=== PATIENT | female | born 1955 | race Caucasian/White ===

== ENCOUNTER 2020-08-31 18:37 | Emergency (ER) | payer BC ==
--- OUTSIDE RECORDS SUMMARY | 2020-08-31 18:39 | XMS REPORT | Continuity of Care Document ---
:1955 Author Organization [facility] t Address [address] [place] [address] Care Team Providers Name Role Phone Elisabeth GENTILE Primary Care Physician Shirley GENTILE, P. Attending Clinician Elisabeth GENTILE Attending Clinician Payers Payer Name Policy Type Policy Effective Date Expiration Date [facility] Express Number [id number] CHOICE [id number] 2016 [place] PPO/FEDERAL 00:00:00 [facility] EMPL [id number] 2016-Presen tPPO Problems Condition Condition Condition Status Onset Resolution Last Treating Co mments Source Name Details Category Date Date Treatment Clinician Date Routine Routine Disease Active [place] general general 6-24 [facility] medical medical 00:00: st examinatio examinatio 00 n at a n at a health health care care facility facility Ganglion, Ganglion, Disease Active Alvina ston joint joint -12 [facility] 00:00: st 00 Postmenopa Postmenopa Disease Active 2008-02 [place] use use 1-24 [facility] 00:00: st 00 Vitamin D Vitamin D Disease Active 2008-02 Al[facility]ina ston deficiency deficiency 0-22 [facility] 00:00: st 00 Screening Screening Disease Active Al[facility]ina ston for for 2-27 [facility] malignant malignant 00:00: st neoplasm neoplasm 00 of the of the cervix cervix Unspecifie Unspecifie Disease Active [place] d disorder d disorder 2-20 [facility] of of 00:00: st menstruati menstruati 00 on and on and other other abnormal abnormal bleeding bleeding from from female female genital genital tract tract Allergic Allergic Disease Active [place] rhinitis rhinitis 06 Method i 00:00: st 00 Family Family Disease Active [place] history of history of 206 [facility] ischemic ischemic 00:00: st heart heart 00 disease disease Lesion of Lesion of Disease Active Overview: [place] breast breast 1-18 Formattin [facility] 00:00: g of this st note might be different from the original. right breast mucocele- like lesion status post core biopsy Allergies, Adverse Reactions, Alerts Allergy Allergy Status Severity Reaction(s) Onset Inactive Treating Comm ents Source Name Type Date Date Clinician Blue Dye Propensi Active Rash [place] ty to 8 [facility] adverse 00:00: st reaction 00 s to drug Acetic Propensi Active [place] Acid ty to 3 [facility] adverse 00:00: st reaction 00 s to drug Family History Family Member Diagnosis Comments Start Date Stop Date Source Natural mother Atrial fibrillation [place] [facility] Natural mother Heart disease [place] [facility] Paternal Dementia [place] grandfather Judaism Paternal Stroke [place] grandmother Judaism Natural father Heart disease [place] [facility] Maternal Brain cancer [place] grandfather Judaism Maternal Colon cancer [place] grandmother Judaism Social History Social Habit Start Date Stop Date Quantity Comments Source Tobacco use and 2020-01-08 2020-01-08 Never used Aidan Haley ethodist exposure 00:00:00 00:00:00 Alcohol intake 2020-01-08 2020-01-08 Current drinker [place] on [facility] 00:00:00 00:00:00 of alcohol (finding) Sex [birth year] F Bermudez Sudha ethodist 00:00:00 00:00:00 Smoking Status Start Date Stop Date Source Never smoker Bermudez Yannais t Medications Ordered Filled Start Stop Current Ordering Indication Dosage Frequency Signature Comments Components Source Medication Medication Date Date Medication? Clinician (SIG) Name Name cholecalcif 2019-02 Yes 1000U Take 1,000 [place] lopez, 1-24 Units by [facility] vitamin D3, 13:23: mouth. st (VITAMIN 21 D3) 1,000 unit tablet folic 2019-02 Yes Take by Berm[place]z acid/multiv 1-24 mouth. Method i it-min/lute 13:23: st in (CENTRUM 21 SILVER ORAL) aspirin 2019-02 Coronary 81mg QD Take 1 Alvina ston (ECOTRIN) 03-09 artery tablet (81 M ethodi 81 MG 00:00: 23:59 calcificati mg total) st enteric 00 :00 on seen on by mouth coated CT scan daily. tablet rosuvastati 2019-02 Mixed 5mg QD Take 1 [place] (Crestor) 03-09 hyperlipide tablet (5 [facility] 5 mg tablet 00:00: 23:59 royer mg total) st 00 :00 by mouth daily for 90 days. azelastine 2018-02 Yes 1{spray 1 spray [place] (ASTELIN) 03-12 } into each Metho di 137 mcg 00:00: nostril as st (0.1 %) 00 needed. nasal spray rosuvastati No 20mg QD Take 1 Alvina ston n (CRESTOR) 10-18 tablet (20 M ethodi 20 MG 00:00: 23:59 mg total) st tablet 00 :00 by mouth daily. Immunizations Ordered Immunization Filled Immunization Date Status Commen ts Source Name Name PFIZER COVID-19 MRNA 2020-04-28 Completed [place] VACCINATION 00:00:00 [facility] PFIZER COVID-19 MRNA 2020-04-07 Completed [place] VACCINATION 00:00:00 [facility] Influenza, 2019 Completed [place] Unspecified 00:00:00 [facility] Influenza, 2018-11-14 Completed [place] Unspecified 00:00:00 [facility] Tdap 2018-08-07 Completed [place] 00:00:00 [facility] Zoster 2015-12-09 Completed [place] 00:00:00 [facility] Influenza [facility] T[facility] 2006-11-04 Completed [place] 00:00:00 [facility] Vital Signs Vital Name Observation Time Observation Value Comments Source Body height 2020-01-08 13:52:00 165.1 cm Aidan Ko Body weight 2020-01-08 13:52:00 54.432 kg Aidan Ko BMI 2020-01-08 13:52:00 19.97 kg/m2 Aidan Ko Procedures Procedure Date / Time Performed Performing Clinician Sour e URINE CULTURE 2020-01-09 14:17:00 Sherrill Barber [facility] URINALYSIS, AUTOMATED 2020-01-09 14:17:00 Sherrill Barber [facility] WITH MICROSCOPY VITAMIN D 25 HYDROXY 2020-01-09 14:17:00 Sherrill Barber on [facility] LEVEL Plan of Care Planned Activity Planned Date Details Comments Source Future Scheduled 2021-12-22 COLONOSCOPY SCREENING [place] [facility] Test 00:00:00 [code = COLONOSCOPY SCREENING] Future Scheduled 2020-09-14 INFLUENZA VACCINE [place] [facility] Test 00:00:00 [code = INFLUENZA VACCINE] Future Scheduled 2019-11-18 BREAST CANCER [place] [facility] Test 00:00:00 SCREENING [code = BREAST CANCER SCREENING] Future Scheduled 2016-02-08 SHINGLES VACCINES [place] [facility] Test 00:00:00 (#2) [code = SHINGLES VACCINES (#2)] Future Scheduled 1976-11-25 Screening for [place] [facility] Test 00:00:00 malignant neoplasm of cervix (procedure) [code = 701739037] Future Scheduled 1973-11-25 Hepatitis C screening [place] [facility] Test 00:00:00 (procedure) [code = 568610357] Encounters Start End Encounter Admission Attending Care Care Encounter Source Date/Time Date/Time Type Type Clinicians Facility Department ID 2020-04-28 2020-04-28 Outpatient SHIRLEY, [facility] [id number] [place] 00:00:00 00:00:00 JOHN [address] 2020-04-07 2020-04-07 Outpatient [facility] [id number] [place] 00:00:00 00:00:[address] 2020-01-08 2020-01-08 Outpatient ELISABETH [facility] [id number] [place] 00:00:00 00:00:[address] Results Test Description Test Time Test Comments Results Result Comments Source Urine culture 2020-01-10 22:01:00 Test Item Value Reference Range Interpretation Comme nts Urine culture (test SEE NOTE CULTUR E, URINE, ROUTINE code = 630-4) Micro Number: [id number] Test Status: Final Specimen Source : URINE Specimen Qualit y: Adequate Result: Growth of mixed carole was isolated, suggesting probable contam ination. No further testing will be pe rformed. If clinically hilda cated, rec ollection using a method to min imize conta mination, with prompt transfer to Urine C ulture Transport Tube, is recommended. RAC (test code = RAC) Performing Organization Information: Site ID: SHIRA [facility] Address: [address] [place] [id number] Director: Jack Bermudez MethodistUrinalysis, automated with [id number] 22:01:00 Test Item Value Reference Range Interpretation Comments Color, UA (test YELLOW YELLOW code = 5778-6) Appearance (test CLEAR CLEAR code = 5767-9) Specific gravity, 1.012 1.001-1.035 urine (test code = 5811-5) pH, urine (test 7.5 5.0-8.0 code = 5803-2) Glucose, urine NEGATIVE NEGATIVE (test code = 72467-6) Bilirubin, UA NEGATIVE NEGATIVE (test code = 5770-3) Ketones, UA (test NEGATIVE NEGATIVE code = 2514-8) Occult blood, NEGATIVE NEGATIVE urine (test code = 5794-3) Protein, UA (test NEGATIVE NEGATIVE code = 40616-1) Nitrite, UA (test NEGATIVE NEGATIVE code = 5802-4) Leukocyte NEGATIVE NEGATIVE esterase, UA (test code = 5799-2) WBC, UA (test NONE SEEN See_Comment [Automated code = 5821-4) message] The system which generated this result transmit claire reference range : < OR = 5 /HPF. Th e reference range was not used to interpret this result as normal/abnormal . RBC, UA (test NONE SEEN See_Comment [Automated code = 28741-9) message] The system which generated this result transmit claire reference range : < OR = 2 /HPF. Th e reference range was not used to interpret this result as normal/abnormal . Squamous NONE SEEN See_Comment [Automated epithelial cells, message] T he UA (test code = system which 07271-2) generated this result transmit claire reference range : < OR = 5 /HPF. Th e reference range was not used to interpret this result as normal/abnormal . Bacteria, UA NONE SEEN NONE SEEN /HPF (test code = 5769-5) Hyaline casts, UA NONE SEEN NONE SEEN /LPF (test code = 5796-8) RAC (test code = Performing RAC) Organization Information: Site ID: SHARMAINEA Name: [facility] Address: [address] [place] [id number] Director: Jack KoVitamin D 25 hydroxy [id number] 22:01:00 Test Item Value Reference Range Interpretation Comments Vitamin D, 41 ng/mL 30-100 Vitamin D Statu s 25-hydroxy 25-OH Temitope min (test code = D: Deficiency: 1989-3) < 20 ng/mLInsufficie ncy: 20 - 29 ng/mLOptimal: > or = 30 ng/mL For 25-OH Vitamin D testi ng on patients on D2-supplementat ion and patients fo r whom quantitati on of D2 and D3 fractions is required, the QuestAssureD(TM )25- OH VIT D, (D2,D 3), LC/MS/MS is recommended: or norman code 71354 (patients >2yrs).See Note 1 Note 1 For additional information, pl ease refer to http://educatio n.[employer]. com/ faq/XBT459 (Thi s link is being provided for informational/e duca tional purposes only.) RAC (test code Performing = RAC) Organization Information: Site ID: SHARMAINEA Name: [facility] Address: [address] [place] [phone] Director: Jack Ko
[2020-08-31] MEDS ORDERED: BUPIVACAINE 0.5% PF 10 ML VIAL ONE (20:38)
[2020-08-31] MEDS ORDERED: TETANUS & DIPHTHERIA TOX,ADULT 0.5 ML VIAL ONE (20:53)
--- NOTE | 2020-08-31 21:21 | EDPHYS ---
Physician Documentation [facility] Name: Isis Torres Age: 64 yrs Sex: Female : 1955 Arrival Date: 08/31/2020 Time: 18:38 Bed 24 Private MD: ED Physician Kang Adams HPI: 08/31 21:17 This 64 yrs old Female presents to ER via Ambulatory with complaints of jmm Finger Laceration. 21:17 The patient or guardian reports injury, a laceration. Onset: The symptoms/episode jmm began/occurred acutely, just prior to arrival. Modifying factors: The symptoms are alleviated by nothing, the symptoms are aggravated by nothing. Associated signs and symptoms: Pertinent negatives: cyanosis distally, decreased sensation distally, fever, nausea, numbness distally, tingling distally, vomiting. Patient states accidently cutting herself with a knife. Patient is unsure on tetanus status. . Historical: - Allergies: 19:05 blue dye; ll1 - PMHx: 19:05 None; ll1 - PSHx: 19:05 Appendectomy; ankle SX; ll1 - Immunization history:: Client reports receiving the 2nd dose of the Covid vaccine, Flu vaccine is up to date. - Social history:: Smoking status: Patient denies any tobacco usage or history of. ROS: 21:17 Constitutional: Negative for fever, chills, and weight loss, Cardiovascular: Negative jmm for chest pain, palpitations, and edema, Respiratory: Negative for shortness of breath, cough, wheezing, and pleuritic chest pain. 21:17 Skin: Positive for laceration(s). 21:17 All other systems are negative. Exam: 21:17 Constitutional: This is a well developed, well nourished patient who is awake, alert, jmm and in no acute distress. Head/Face: atraumatic. Eyes: EOMI, no conjunctival erythema appreciated ENT: Moist Mucus Membranes Neck: Trachea midline, Supple Chest/axilla: Normal chest wall appearance and motion. Cardiovascular: Regular rate and rhythm. No edema appreciated Respiratory: Normal respirations, no respiratory distress appreciated Abdomen/GI: Non distended, soft Back: Normal ROM 21:17 Skin: 1 cm laceration noted to the palmar surface of the left distal 2nd finger. . 21:17 Neuro: Orientation: is normal, Mentation: is normal, Memory: is normal. 21:17 Psych: Behavior/mood is pleasant, cooperative. Vital Signs: 19:03 BP 128 / 71; Pulse 68; Resp 16; Temp 97.3; Pulse Ox 100% ; Weight 56.7 kg; Height 5 ft. ll1 5 in. (165.10 cm); Pain 3/10; 21:27 BP 120 / 80; Pulse 65; Resp 16; Pulse Ox 100% ; zb 19:03 Body Mass Index 20.80 (56.70 kg, 165.10 cm) ll1 Laceration: 21:19 Wound Repair of 1cm ( 0.4in ) subcutaneous laceration to left hand. Distal jmm neuro/vascular/tendon intact. Anesthesia: Local anesthetic administered with 2 mls of 0.5% marcaine. Wound prep: Simple cleansing with betadine by me. Skin closed with 3 5-0 Prolene using simple sutures and sterile technique. Patient tolerated well. MDM: 20:21 Patient medically screened. [facility] 21:19 Data reviewed: vital signs, nurses notes. Counseling: I had a detailed discussion with rochelle the patient and/or guardian regarding: the historical points, exam findings, and any diagnostic results supporting the discharge/admit diagnosis, the need for outpatient follow up, to return to the emergency department if symptoms worsen or persist or if there are any questions or concerns that arise at home. ED course: Patient given wound infection return precautions. Patient understood and agrees with the plan of care. . Administered Medications: 20:23 Drug: Marcaine (bupivacaine) (0.5 %) 10 ml {Note: given to ecp .} Volume: 10 ml; Route: zb Infiltration; 20:43 Drug: Tetanus-Diphtheria Toxoid Adult 0.5 ml {Social Media Director: [employer]. Exp: zb 04/18/2022. Lot #: [id number]. } Route: IM; Site: left deltoid; 21:27 Follow up: Response: No adverse reaction zb Disposition: 23:06 Co-signature as Attending Physician, Kang Adams MD. pkl Disposition Summary: 08/31/20 21:21 Discharge Ordered Location: Home [facility] Condition: Stable [facility] Diagnosis - Finger Laceration [facility] Followup: [facility] - With: Private Physician - When: 7 - 10 days - Reason: Recheck today's complaints, Continuance of care, Re-evaluation by your physician Discharge Instructions: - Discharge Summary Sheet jmm - Laceration Care, Adult rochelle Forms: - Medication Reconciliation Form rochelle - Thank You Letter rochelle - Antibiotic Education rochelle - Prescription Opioid Use rochelle Signatures: Kang Adams MD MD pkl Mickail, Joel, PA PA jmm Lewis, Lynsay, RN RN ll1 Kisha Sainz RN RN zb
--- NOTE | 2020-08-31 21:21 | ER ---
Nurse's Notes [facility] Name: Isis Torres Age: 64 yrs Sex: Female : 1955 Arrival Date: 08/31/2020 Time: 18:38 Bed 24 Private MD: Diagnosis: Finger Laceration Presentation: 08/31 19:03 Chief complaint: Patient states: L hand 2nd digit <2 cm laceration, bleeding ll1 controlled. 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 Coronavirus screen: Client denies travel out of the [place] in the last 14 days. At this time, the client does not indicate any symptoms associated with coronavirus-19. Ebola Screen: Patient denies travel to an Ebola-affected area in the 21 days before illness onset. Initial Sepsis Screen: Does the patient meet any 2 criteria? No. Patient's initial sepsis screen is negative. Does the patient have a suspected source of infection? Yes: Skin breakdown/wound. Risk Assessment: Do you want to hurt yourself or someone else? Patient reports no desire to harm self or others. Onset of symptoms was August 31, 2020. 19:03 Method Of Arrival: Ambulatory ll1 19:03 Acuity: SIDRA 4 ll1 Historical: - Allergies: 19:05 blue dye; ll1 - PMHx: 19:05 None; ll1 - PSHx: 19:05 Appendectomy; ankle SX; ll1 - Immunization history:: Client reports receiving the 2nd dose of the Covid vaccine, Flu vaccine is up to date. - Social history:: Smoking status: Patient denies any tobacco usage or history of. Screenin:46 Abuse screen: Denies threats or abuse. Denies injuries from another. Nutritional zb screening: No deficits noted. Tuberculosis screening: No symptoms or risk factors identified. Fall Risk None identified. Assessment: 20:44 General: Appears in no apparent distress. comfortable, Behavior is calm. Pain: zb Complains of pain in left hand. Neuro: Level of Consciousness is awake, Oriented to person, place, time, Contact Printer Dry Film are equal bilaterally. Cardiovascular: Patient's skin is warm and dry. GI: Abdomen is flat, Bowel sounds present X 4 quads. Derm: Skin is intact, is healthy with good turgor, Skin is dry, Skin is normal. Musculoskeletal: Range of motion: intact in all extremities. Vital Signs: 19:03 BP 128 / 71; Pulse 68; Resp 16; Temp 97.3; Pulse Ox 100% ; Weight 56.7 kg; Height 5 ft. ll1 5 in. (165.10 cm); Pain 3/10; 21:27 BP 120 / 80; Pulse 65; Resp 16; Pulse Ox 100% ; zb 19:03 Body Mass Index 20.80 (56.70 kg, 165.10 cm) 1 ED Course: 18:38 Patient arrived in ED. mr 19:05 Triage completed. ll1 19:07 Arm band placed on. ll1 20:00 Ray Ramirez PA is PHCP. rochelle 20:00 Kang Adams MD is Attending Physician. rochelle 20:14 Kisha Sainz RN is Primary Nurse. zb 20:46 Patient has correct armband on for positive identification. Bed in low position. Call zb light in reach. Side rails up X 1. nuclear monitoring technician on. Pulse ox on. NIBP on. Door closed. Noise minimized. 21:27 No provider procedures requiring assistance completed. Patient did not have IV access zb during this emergency room visit. Administered Medications: 20:23 Drug: Marcaine (bupivacaine) (0.5 %) 10 ml {Note: given to ecp .} Volume: 10 ml; Route: zb Infiltration; 20:43 Drug: Tetanus-Diphtheria Toxoid Adult 0.5 ml {Data Processing Operator: [employer]. Exp: zb 04/18/2022. Lot #: [id number]. } Route: IM; Site: left deltoid; 21:27 Follow up: Response: No adverse reaction zb Outcome: 21:21 Discharge ordered by . rochelle 21:29 Discharged to home ambulatory, with family. zb 21:29 Condition: stable 21:29 Discharge instructions given to patient, Instructed on discharge instructions, follow up and referral plans. Demonstrated understanding of instructions, follow-up care, wound care. 21:29 Patient left the ED. zb Signatures: Ray Ramirez PA PA jmm KhanIris hoyos mr OvallesFrandy, RN RN [facility] Kisha Sainz RN RN zb
[2020-08-31 21:34] VITALS: TEMP 97.3; O2SAT 100
[2020-08-31 21:36] VITALS: BP 120/80
== END 2020-08-31 21:29 | disposition home or self-care (01) ==
LOC: ER 18:37
PROC: 0JQK0ZZ Repair Left Hand Subcutaneous Tissue and Fascia, Open Approach (ICD-10-PCS; principal; 2020-08-31)
DX: S61.211A Laceration without foreign body of left index finger without damage to nail, initial encounter (principal); W26.0XXA Contact with knife, initial encounter; Z23 Encounter for immunization; Z91.048 Other nonmedicinal substance allergy status
CPT/HCPCS: 90471; 90714; 99284